=== PATIENT | male | born 1960 | race Caucasian/White ===

== ENCOUNTER 2023-01-29 11:02 | Emergency (ER) | payer BC ==
[2023-01-29 11:21] LABS: BASOPHILS ABSOLUTE AUTO 0.05 10^3/uL (0.00-0.50); BASOPHILS PERCENT AUTO 0.3 % (0-1); EOSINOPHILS ABSOLUTE AUTO 0.03 10^3/uL (0.00-1.50); EOSINOPHILS PERCENT AUTO 0.2 % (0-6); HEMATOCRIT 43.6 % (42.0-52.0); HEMOGLOBIN 14.6 g/dL (14.0-18.0); IMMATURE GRAN ABSOLUTE AUTO 0.42 10^3/uL (0.00-0.49); IMMATURE GRAN PERCENT AUTO 2.2 % (0.0-4.9); MEAN CORPUSCULAR HEMOGLOBIN 29.1 pg (27.0-32.0); MEAN CORPUSCULAR HGB CONC 33.5 g/dL (32.0-36.0); MONOCYTES ABSOLUTE AUTO 0.63 10^3/uL (0.00-1.50); MONOCYTES PERCENT AUTO 3.3 % (0-10); NEUTROPHILS ABSOLUTE AUTO 15.96 x10^3/uL (1.80-8.00); PLATELET COUNT,PLT 194 10^3/uL (150-400); RED BLOOD CELL COUNT 5.01 x10^6/uL (4.50-6.00)
[2023-01-29] MEDS ORDERED: Iopamidol 755 Mg/ML 100 ML Bottle IVPUSH ONE (11:28)
[2023-01-29] MEDS ORDERED: Sodium Chloride 0.9% 1,000 ML IV STA (11:29)
[2023-01-29 11:34] LABS: ALBUMIN 3.5 g/dL (3.4-5.0); BILIRUBIN TOTAL 0.3 mg/dL (0.0-1.0); CALCIUM 9.1 mg/dL (8.4-10.1); EST CRCL DRUG DOSING (CG) 81.58 mL/min; MAGNESIUM 1.8 mg/dL (1.8-2.4); POTASSIUM,K 3.9 mEq/L (3.5-5.0); PROTEIN TOTAL,TP 7.2 g/dL (6.4-8.2)
[2023-01-29 11:50] LABS: APPEARANCE,URINE CLOUDY (CLEAR); BILIRUBIN,URINE NEGATIVE (NEGATIVE); COLOR,URINE DARK YELLOW (YELLOW); GLUCOSE,URINE NEGATIVE (NEGATIVE); KETONES,URINE NEGATIVE (NEGATIVE); LEUKOCYTE ESTERASE,URINE NEGATIVE (NEGATIVE); NITRITE,URINE NEGATIVE (NEGATIVE); OCCULT BLOOD,URINE MODERATE (NEGATIVE); PROTEIN,URINE 30 mg/dL (NEGATIVE); UROBILINOGEN,URINE 0.2 EU/dL (0.2-1.0)
[2023-01-29] MEDS ORDERED: Diphtheria,Pertussis(Acell),Tetanus Vaccine 0.5 ML Syringe IM ONE (11:54)
[2023-01-29 12:09] LABS: BACTERIA,URINE OCCASIONAL /HPF (NOT SEEN); RBC,URINE >100 /HPF (0-5); SQUAMOUS EPITHELIAL CELLS,UR FEW /HPF (NOT SEEN); WBC,URINE 0-5 /HPF (0-5)
[2023-01-29 12:58] LABS: AMPHETAMINES,URINE NEGATIVE (NEGATIVE); BARBITURATES,URINE NEGATIVE (NEGATIVE); BENZODIAZEPINE,URINE NEGATIVE (NEGATIVE); MDMA (ECSTASY), URINE NEGATIVE (NEGATIVE); METHADONE,URINE NEGATIVE (NEGATIVE); METHAMPHETAMINES,URINE NEGATIVE (NEGATIVE); OPIATES,URINE NEGATIVE (NEGATIVE); OXYCODONE,URINE NEGATIVE (NEGATIVE); PHENCYCLIDINE,URINE NEGATIVE (NEGATIVE); TCA,URINE NEGATIVE (NEGATIVE)
[2023-01-29] MEDS ORDERED: Lactated Ringers 1,000 ML IV SCH (13:15)
[2023-01-29] MEDS ORDERED: Naloxone 2 MG/2 ML Syringe IVPUSH PRN (13:23)
[2023-01-29] MEDS ORDERED: fentaNYL 50 MCG/ML SDV IVPUSH ONE (13:23)
[2023-01-29] MEDS ORDERED: Ondansetron 4 MG/2 ML SDV IVPUSH ONE (13:37)
[2023-01-29] MEDS: HYDROmorphone 0.5 MG/0.5 ML Syringe ONE (14:24)
[2023-01-30] MEDS ORDERED: HYDROmorphone 0.5 MG/0.5 ML Syringe IVPUSH ONE (13:10)
[2023-01-30] MEDS: HYDROmorphone 0.5 MG/0.5 ML Syringe ONE (13:12)
== END 2023-01-29 14:25 ==
LOC: CC.ED 11:02
DX: S32.592A Other specified fracture of left pubis, initial encounter for closed fracture (principal); S39.81XA Other specified injuries of abdomen, initial encounter; S29.8XXA Other specified injuries of thorax, initial encounter; S39.83XA Other specified injuries of pelvis, initial encounter; Z91.030 Bee allergy status; Z88.8 Allergy status to other drugs, medicaments and biological substances; W22.8XXA Striking against or struck by other objects, initial encounter; Z79.899 Other long term (current) drug therapy
CPT/HCPCS: 36415; 71045; 72170; 74177; 80053; 80305-QW; 81001; 82550; 83605; 83735; 85025; 86850; 86900; 86901; 90471; 90715; 93005; 93010; 96374; 96375; 99284; 99285-25; J1170; J2405; J3010; J7030; J7120; Q9967